=== PATIENT | female | born 1960 | race Caucasian/White ===

== ENCOUNTER → 2024-01-19 13:17 | Outpatient (REF) | payer BC, SELFPAY | LOC: HWWDC 13:17 | PROVIDERS: ATTENDING PHYSICIAN Registered Nurse; FAMILY PHYSICIAN Nurse Practitioner Family | DX: Z12.31 Encounter for screening mammogram for malignant neoplasm of breast (principal) | CPT/HCPCS: 77063; 77067 ==

== ENCOUNTER → 2024-02-06 13:31 | Outpatient (REF) | payer BC, SELFPAY ==
[2024-02-06 15:40] LABS: % Eosinophils 1.7 % (0-6); % Immature Granulocytes 0.2 % (0-0.5); % Lymphocytes 32.1 % (20.5-51.1); % Monocytes 7.9 % (1.7-9.3); % Neutrophils 57.1 % (42.2-75.2); Absolute Eosinophils 0.1 10^3/uL (0-0.7); Absolute Lymphocytes 1.3 10^3/uL (1.2-3.4); Absolute Monocytes 0.3 10^3/uL (0.1-0.6); Absolute Neutrophils 2.3 10^3/uL (1.4-6.5); Hematocrit 36.3 % (37.0-47.0); Hemoglobin 12.7 g/dL (12.0-16.0); Mean Corpuscular Hgb 33.4 pg (27.0-31.0); Mean Corpuscular Volume 95.5 fL (81.0-99.0); Mean Platelet Volume 12.2 fL (7.4-10.4); Nucleated Red Blood Cells % 0 %; Platelet Count 171 10^3/uL (130-400); Red Cell Dist. Width 12.8 % (11.5-14.5); White Blood Cell Count 4.1 10^3/uL (4.8-10.8)
[2024-02-06 15:52] LABS: ALT (SGPT) 23 U/L (0-35); AST (SGOT) 34 U/L (14-36); Albumin 4.2 g/dl (3.5-5.0); Alkaline Phosphatase 121 U/L (38-126); Blood Urea Nitrogen 22 mg/dl (7-17); Carbon Dioxide 29 mmol/L (22-30); Chloride 104 mmol/L (98-107); Glucose 80 mg/dl (70-99); Iron 88 ug/dl (37-170); Potassium 4.6 mmol/L (3.5-5.1); Sodium 138 mmol/L (135-145); Total Bilirubin 0.6 mg/dl (0.2-1.3); Total Protein 6.5 g/dl (6.3-8.2); eGFR > 60.00
[2024-02-06 16:04] LABS: Percent Saturation 45 % (20-50); Total Iron Binding Capacity 195 ug/dl (265-497)
[2024-02-06 16:07] LABS: Free T3 2.62 pg/ml (2.77-5.27); Free T4 0.98 ng/dl (0.78-2.19)
== END ==
LOC: HWLAB 13:31
PROVIDERS: ATTENDING PHYSICIAN Family Medicine; FAMILY PHYSICIAN Nurse Practitioner Family
DX: K22.719 Barrett's esophagus with dysplasia, unspecified (principal); E83.119 Hemochromatosis, unspecified; D72.819 Decreased white blood cell count, unspecified; F43.20 Adjustment disorder, unspecified; R94.6 Abnormal results of thyroid function studies
CPT/HCPCS: 36415; 80053; 83540; 83550; 84439; 84443; 84481; 85025

== ENCOUNTER → 2024-03-17 06:15 | Outpatient (REF) | payer BC, SELFPAY ==
[2024-03-17 09:24] LABS: % Eosinophils 3.1 % (0-6); % Immature Granulocytes 0.3 % (0-0.5); % Monocytes 8.1 % (1.7-9.3); % Neutrophils 53.5 % (42.2-75.2); Absolute Eosinophils 0.1 10^3/uL (0-0.7); Absolute Lymphocytes 1.3 10^3/uL (1.2-3.4); Absolute Monocytes 0.3 10^3/uL (0.1-0.6); Absolute Neutrophils 2.1 10^3/uL (1.4-6.5); Hematocrit 37.8 % (37.0-47.0); Hemoglobin 12.9 g/dL (12.0-16.0); Mean Corp Hgb Conc. 34.1 g/dL (33.0-37.0); Mean Corpuscular Hgb 32.5 pg (27.0-31.0); Mean Corpuscular Volume 95.2 fL (81.0-99.0); Mean Platelet Volume 11.8 fL (7.4-10.4); Nucleated Red Blood Cells % 0 %; Platelet Count 181 10^3/uL (130-400); Red Blood Cell Count 3.97 10^6/uL (4.20-5.40); Red Cell Dist. Width 12.6 % (11.5-14.5); White Blood Cell Count 3.9 10^3/uL (4.8-10.8)
[2024-03-17 10:23] LABS: ALT (SGPT) 25 U/L (0-35); AST (SGOT) 32 U/L (14-36); Albumin 4.1 g/dl (3.5-5.0); Alkaline Phosphatase 105 U/L (38-126); Blood Urea Nitrogen 19 mg/dl (7-17); Calcium 9.4 mg/dl (8.4-10.2); Carbon Dioxide 25 mmol/L (22-30); Chloride 104 mmol/L (98-107); GGTP 20 U/L (12-43); Glucose 85 mg/dl (70-99); HDL Cholesterol 94 mg/dl; Iron 114 ug/dl (37-170); LDL Cholesterol, Calculated 85 mg/dl; Potassium 4.3 mmol/L (3.5-5.1); Sodium 138 mmol/L (135-145); Total Bilirubin 0.8 mg/dl (0.2-1.3); Total Cholesterol 191 mg/dl (50-199); Total Protein 6.4 g/dl (6.3-8.2); Triglyceride 60 mg/dl (10-149); Very Low Density Lipoprotein 12 mg/dl (0-30); eGFR > 60.00
[2024-03-17 10:31] LABS: Percent Saturation 57 % (20-50); Total Iron Binding Capacity 199 ug/dl (265-497)
[2024-03-17 10:49] LABS: TSH Reflex To Free T4 1.14 uIU/ml (0.47-4.68)
[2024-03-17 10:53] LABS: Ferritin 89.2 ng/ml (11.1-264.0)
== END ==
LOC: HWLAB 06:15
PROVIDERS: ATTENDING PHYSICIAN Orthopaedic Surgery; FAMILY PHYSICIAN Nurse Practitioner Family
DX: Z01.818 Encounter for other preprocedural examination (principal)
CPT/HCPCS: 36415; 80053; 80061; 82728; 82977; 83540; 83550; 84443; 85025; 93005

== ENCOUNTER → 2024-04-01 12:58 | Outpatient (REF) | payer BC, SELFPAY | LOC: HWRCS 12:58 | PROVIDERS: ATTENDING PHYSICIAN Student in an Organized Health Care Education/Training Program; FAMILY PHYSICIAN Nurse Practitioner Family | DX: Z01.818 Encounter for other preprocedural examination (principal) | CPT/HCPCS: 93306 ==

== ENCOUNTER → 2024-05-10 17:11 | Outpatient (REF) | payer BC, SELFPAY | LOC: HWRAD 17:11 | PROVIDERS: ATTENDING PHYSICIAN Nurse Practitioner Family | DX: R05.9 Cough, unspecified (principal) | CPT/HCPCS: 71046 ==

== ENCOUNTER → 2024-11-18 16:00 | Outpatient (REF) | payer BC, SELFPAY | LOC: HWRAD 16:00 | PROVIDERS: ATTENDING PHYSICIAN Nurse Practitioner Family | DX: M54.2 Cervicalgia (principal) | CPT/HCPCS: 72050 ==

== ENCOUNTER 2024-11-24 06:21 | Day surgery (SDC) | payer BC, SELFPAY | END 2024-11-24 12:48 | disposition home or self-care (01) | LOC: GI 06:21 | PROVIDERS: ATTENDING PHYSICIAN Internal Medicine Gastroenterology | DX: K22.70 Barrett's esophagus without dysplasia (principal); K22.89 Other specified disease of esophagus | CPT/HCPCS: 43239; 88305 ==

== ENCOUNTER → 2025-03-16 08:17 | Outpatient (REF) | payer BC, SELFPAY | LOC: HWRAD 08:17 | PROVIDERS: ATTENDING PHYSICIAN Registered Nurse; FAMILY PHYSICIAN Nurse Practitioner Family | DX: Z12.73 Encounter for screening for malignant neoplasm of ovary (principal); Z12.79 Encounter for screening for malignant neoplasm of other genitourinary organs; Z80.41 Family history of malignant neoplasm of ovary | CPT/HCPCS: 76830; 76856 ==

== ENCOUNTER → 2025-04-05 12:52 | Outpatient (REF) | payer BC, SELFPAY | LOC: HWWDC 12:52 | PROVIDERS: ATTENDING PHYSICIAN Registered Nurse; FAMILY PHYSICIAN Nurse Practitioner Family | DX: Z12.31 Encounter for screening mammogram for malignant neoplasm of breast (principal) | CPT/HCPCS: 77063; 77067 ==

== ENCOUNTER → 2025-04-22 07:38 | Outpatient (REF) | payer BC, SELFPAY ==
[2025-04-22 10:10] LABS: ALT (SGPT) 32 U/L (0-35); AST (SGOT) 33 U/L (14-36); Albumin 4.7 g/dl (3.5-5.0); Alkaline Phosphatase 126 U/L (38-126); Blood Urea Nitrogen 24 mg/dl (7-17); Calcium 9.8 mg/dl (8.4-10.2); Carbon Dioxide 26 mmol/L (22-30); Chloride 107 mmol/L (98-107); Glucose 81 mg/dl (70-99); Potassium 4.4 mmol/L (3.5-5.1); Sodium 139 mmol/L (135-145); Total Protein 7.2 g/dl (6.3-8.2); eGFR > 60.00
== END ==
LOC: HWRAD 07:38
PROVIDERS: ATTENDING PHYSICIAN Registered Nurse; FAMILY PHYSICIAN Nurse Practitioner Family
DX: M85.80 Other specified disorders of bone density and structure, unspecified site (principal); M54.2 Cervicalgia; Z13.31 Encounter for screening for depression; E83.110 Hereditary hemochromatosis; Z00.00 Encounter for general adult medical examination without abnormal findings; Z12.11 Encounter for screening for malignant neoplasm of colon; Z23 Encounter for immunization; K22.70 Barrett's esophagus without dysplasia; M79.89 Other specified soft tissue disorders; Z85.828 Personal history of other malignant neoplasm of skin
CPT/HCPCS: 36415; 77080; 80053

== ENCOUNTER → 2025-05-20 09:05 | Outpatient (REF) | payer BC, SELFPAY ==
[2025-05-20 11:54] LABS: Hematocrit 36.9 % (37.0-47.0); Hemoglobin 12.7 g/dL (12.0-16.0); Mean Corp Hgb Conc. 34.4 g/dL (33.0-37.0); Mean Corpuscular Volume 94.1 fL (81.0-99.0); Nucleated Red Blood Cells % 0 %; Platelet Count 154 10^3/uL (130-400); Red Cell Dist. Width 12.6 % (11.5-14.5)
[2025-05-20 12:08] LABS: HDL Cholesterol 98 mg/dl; LDL Cholesterol, Calculated 71 mg/dl; Very Low Density Lipoprotein 13 mg/dl (0-30)
[2025-05-20 12:19] LABS: FSH 52.7 mIU/ml
[2025-05-20 12:34] LABS: Cortisol, Random 7.1 ug/dl
== END ==
LOC: HWLAB 09:05
PROVIDERS: ATTENDING PHYSICIAN Family Medicine; FAMILY PHYSICIAN Nurse Practitioner Family
DX: K22.719 Barrett's esophagus with dysplasia, unspecified (principal); M85.89 Other specified disorders of bone density and structure, multiple sites; D72.819 Decreased white blood cell count, unspecified; E83.119 Hemochromatosis, unspecified; Z13.6 Encounter for screening for cardiovascular disorders; N95.1 Menopausal and female climacteric states
CPT/HCPCS: 36415; 80061; 82533; 82627; 82670; 82679; 83001; 83002; 84144; 84270; 84402; 84403; 85025